=== PATIENT | male | born 1990 | race Hispanic/Latino ===

== ENCOUNTER 2017-06-24 13:07 | Emergency (ER) | payer SELFPAY ==
[~2017-06-24] VITALS: Ht 170.2 cm; Wt 64.9 kg
[2017-06-24 15:36] VITALS: BP 131/76
== END 2017-06-24 15:38 | disposition home or self-care (01) ==
LOC: EME 13:07
DX: Z77.098 Contact with and (suspected) exposure to other hazardous, chiefly nonmedicinal, chemicals (principal)
CPT/HCPCS: 99281; 99284

== ENCOUNTER 2017-08-02 15:44 | Inpatient (IN) | payer BC ==
[~2017-08-02] VITALS: Ht 170.2 cm; Wt 61.1 kg
[2017-08-02 17:44] LABS: HEMATOCRIT 43.5 % (38.0-50.0); MCH 30.1 PG (29.0-34.0); MCHC 35.2 G/DL (30.0-36.0); MCV 85.6 FL (86-99); MEAN PLAT.VOLUME 9.5 uM^3 (9.0-12.4); PLATELET COUNT 260 K/uL (156-360); RBC DIS.WIDTH-CV 11.8 % (11.8-14.6); RBC DIS.WIDTH-SD 36.9 % (39-53); RED BLOOD COUNT 5.08 M/uL (4.00-5.50); WHITE BLOOD COUNT 10.5 K/uL (4.1-10.2)
[2017-08-02 17:55] LABS: CHLORIDE 103 mEq/L (99-109); POTASSIUM 3.7 mEq/L (3.7-5.4); SODIUM 139 mEq/L (136-147)
[2017-08-02 17:58] LABS: GLUCOSE 108 mg/dL (70-99)
[2017-08-02 17:59] LABS: ANION GAP 11 MEQ/L (2-14)
[2017-08-02 18:00] LABS: TOTAL BILIRUBIN 0.8 mg/dL (0.0-1.0)
[2017-08-02 18:01] LABS: ALKALINE PHOSPHATASE 42 IU/L (3-129); SERUM ETHYL ALCOHOL < 10 mg/dL
[2017-08-02 18:02] LABS: GFR ESTIMATE (CALCULATED) > 59 mL/min/
[2017-08-02 18:03] LABS: UREA NITROGEN (BUN) 12 mg/dL (9-23)
[2017-08-02 22:30] VITALS: BP 104/57
[2017-08-03 07:16] VITALS: BP 113/56
[2017-08-03 15:27] VITALS: BP 132/68
[2017-08-04 07:53] VITALS: BP 120/57
[2017-08-04 15:36] VITALS: BP 118/59
[2017-08-05 07:43] VITALS: BP 104/51
[2017-08-05 15:15] VITALS: BP 107/57
[2017-08-06 07:52] VITALS: BP 111/54
[2017-08-06 15:31] VITALS: BP 113/63
[2017-08-07 07:38] VITALS: BP 106/58
[2017-08-07 15:28] VITALS: BP 118/67
[2017-08-08 07:35] VITALS: BP 110/57
[2017-08-08] MEDS ORDERED: CEPHALEXIN500 MG PO (08:46)
[2017-08-08] MEDS ORDERED: RISPERDAL2 MG PO (08:46)
== END 2017-08-08 10:55 | disposition home or self-care (01) | DRG 885 ==
LOC: EME 15:44 → EDOF 19:43 → 1WEST 19:43 → ENRESERV 22:19 → 1WEST 22:20
PROVIDERS: Emergency Medicine
PROC: 0HQCXZZ Repair Left Upper Arm Skin, External Approach (ICD-10-PCS; principal; 2017-08-02)
DX: F20.9 Schizophrenia, unspecified (principal); F22 Delusional disorders; X78.9XXA Intentional self-harm by unspecified sharp object, initial encounter; F17.200 Nicotine dependence, unspecified, uncomplicated; S51.811A Laceration without foreign body of right forearm, initial encounter; S51.812A Laceration without foreign body of left forearm, initial encounter
CPT/HCPCS: 80053; 85027; 90837; 97150 GO; 97165 GO; 99281; 99284; G0480; J1630; J2060